=== PATIENT | female | born 1990 | race Caucasian/White ===

== ENCOUNTER 2017-02-12 02:01 | Emergency (ER) | payer MEDICARE, OTHER ==
[~2017-02-12] VITALS: Ht 160 cm; Wt 86.0 kg
[~2017-02-12 02:01] MED LIST: ARIP30TA5 PO; DULO30CA2 PO; PROP40TA7 PO
[2017-02-12 02:44] LABS: ANION GAP 10 mmol/L (8-16); BASOPHILS % (AUTO) 0.4 % (0.0-2.0); CALCIUM, TOTAL 9.1 mg/dL (8.8-10.5); CARBON DIOXIDE 24 mmol/L (22-29); CHLORIDE 105 mmol/L (98-107); CREATININE 0.94 mg/dL (0.60-1.30); EOSINOPHILS % (AUTO) 0.7 % (1.0-6.0); GLOMERULAR FILTR. RATE CALC > 60 mL/min (>60); HEMATOCRIT 39.7 % (36-46); HEMOGLOBIN 12.6 g/dL (12.0-16.0); LYMPHOCYTES # (AUTO) 1.5 K/uL (1.0-4.8); LYMPHOCYTES % (AUTO) 22.2 % (22.0-44.0); MEAN CORPUSCULAR HEMOGLOBIN 25.3 pg (26.0-34.0); MEAN CORPUSCULAR HGB CONC 31.7 G/dL (31.0-37.0); MEAN CORPUSCULAR VOLUME 80 fL (80-100); MONOCYTES # (AUTO) 0.4 K/uL (0.1-1.0); MONOCYTES % (AUTO) 5.7 % (2.0-9.0); NEUTROPHILS # (AUTO) 4.8 K/uL (1.8-7.7); PLATELET COUNT (AUTO) 216 K/uL (150-450); POTASSIUM 3.4 mmol/L (3.5-5.1); RED BLOOD CELL COUNT(AUTO) 4.97 MIL/uL (4.00-5.20); RED CELL DISTRIBUTION WIDTH 13.7 % (11.5-14.5); SODIUM SERUM 139 mmol/L (136-145); UREA NITROGEN, BLOOD 16 mg/dL (7-18); WHITE BLOOD COUNT (AUTO) 6.7 K/uL (4.5-11.0)
[2017-02-12 02:50] LABS: ALANINE AMINOTRANSFERASE 37 U/L (12-78); ALBUMIN 3.6 g/dL (3.4-5.0); ASPARTATE AMINOTRANSFERASE 16 U/L (15-37); BILIRUBIN,TOTAL 0.3 mg/dL (0.1-1.0)
[2017-02-12 04:19] VITALS: BP 118/75
== END 2017-02-12 04:21 | disposition home or self-care (01) ==
LOC: EMS 02:02
DX: F31.9 Bipolar disorder, unspecified (principal); F17.210 Nicotine dependence, cigarettes, uncomplicated; Z88.6 Allergy status to analgesic agent; Z88.8 Allergy status to other drugs, medicaments and biological substances; Z91.040 Latex allergy status
CPT/HCPCS: 36415; 80053; 80307; 85025; 99285; G0480

== ENCOUNTER 2017-06-15 12:13 | Inpatient (IN) | payer MEDICARE, MEDICAID ==
[~2017-06-15] VITALS: Ht 160 cm; Wt 86.9 kg
[~2017-06-15 12:13] MED LIST changes: +ARIP30TA PO; -ARIP30TA5 PO
[2017-06-15] MEDS ORDERED: PROMETHAZINE HCL 25 MG TABLET PO PRN (18:00)
[2017-06-15] MEDS ORDERED: LOPERAMIDE HCL 2 MG CAPSULE PO PRN (18:00)
[2017-06-15] MEDS ORDERED: ACETAMINOPHEN 325 MG TABLET PO PRN ×2 (18:00→21:15)
[2017-06-15] MEDS ORDERED: LORazepam 2 MG TABLET PO PRN (18:00)
[2017-06-15] MEDS ORDERED: HydrOXYzine PAMOATE 50 MG CAPSULE PO PRN (18:00)
[2017-06-15] MEDS ORDERED: MAG HYDROX/AL HYDROX/SIMETH ES 30 ML SUSPENSION UDCUP PO PRN (18:00)
[2017-06-15] MEDS ORDERED: TUBERCULIN, PURIFIED PROTEIN DERIVATIVE 5 TU/0.1 ML SYG ID ONE (18:00)
[2017-06-15] MEDS ORDERED: GuaiFENesin/D-METHORPHAN [SUGAR-FREE] 200-20MG/10 ML SYRUP UDCUP PO PRN (18:00)
[2017-06-15] MEDS ORDERED: ZOLPIDEM TARTRATE 10 MG TABLET PO PRN (18:00)
[2017-06-15] MEDS ORDERED: MAGNESIUM HYDROXIDE SUSPENSION 30 ML UDCUP PO PRN (18:00)
[2017-06-15] MEDS ORDERED: OLANZapine 5 MG RAPDIS TABLET PO PRN (18:00)
[2017-06-15 18:28] VITALS: BP 114/77
[2017-06-15] MEDS: THIAMINE HCL 100 MG TABLET PO SCH (18:42)
[2017-06-15] MEDS: PROPRANOLOL HCL 10 MG TABLET PO SCH (18:42)
[2017-06-15 19:44] VITALS: BP 121/75
[2017-06-15] MEDS ORDERED: OLANZapine 5 MG RAPDIS TABLET PO SCH (21:00)
[2017-06-15] MEDS ORDERED: ARIPiprazole ER SUSPENSION 400 MG PRE-FILLED DUAL CHAMBER SYRINGE IM ONE (21:00)
[2017-06-15] MEDS ORDERED: IBUPROFEN 400 MG TABLET PO PRN (21:15)
[2017-06-16 06:33] VITALS: BP 124/90
[2017-06-16 08:04] VITALS: BP 110/66
[2017-06-16 08:20] LABS: BASOPHILS % (AUTO) 0.4 % (0.0-2.0); EOSINOPHILS % (AUTO) 1.3 % (1.0-6.0); HEMATOCRIT 40.3 % (36-46); HEMOGLOBIN 13.4 g/dL (12.0-16.0); LYMPHOCYTES # (AUTO) 1.8 K/uL (1.0-4.8); LYMPHOCYTES % (AUTO) 25.3 % (22.0-44.0); MEAN CORPUSCULAR HEMOGLOBIN 27.3 pg (26.0-34.0); MEAN CORPUSCULAR HGB CONC 33.3 G/dL (31.0-37.0); MEAN CORPUSCULAR VOLUME 82 fL (80-100); MONOCYTES # (AUTO) 0.4 K/uL (0.1-1.0); MONOCYTES % (AUTO) 5.1 % (2.0-9.0); NEUTROPHILS # (AUTO) 4.9 K/uL (1.8-7.7); NEUTROPHILS % (AUTO) 67.9 % (40.0-70.0); PLATELET COUNT (AUTO) 260 K/uL (150-450); RED BLOOD CELL COUNT(AUTO) 4.92 MIL/uL (4.00-5.20); WHITE BLOOD COUNT (AUTO) 7.2 K/uL (4.5-11.0)
[2017-06-16 08:42] LABS: HEMOGLOBIN A1C 5.7 % (4.5-6.2)
[2017-06-16 08:43] LABS: ALANINE AMINOTRANSFERASE 34 U/L (12-78); ALBUMIN 3.8 g/dL (3.4-5.0); ANION GAP 10 mmol/L (8-16); ASPARTATE AMINOTRANSFERASE 27 U/L (15-37); BILIRUBIN,TOTAL 0.5 mg/dL (0.1-1.0); CARBON DIOXIDE 28 mmol/L (22-29); CHLORIDE 103 mmol/L (98-107); CHOL/HDL RATIO 4.7 (3.9-5.7); CREATININE 0.77 mg/dL (0.60-1.30); GLOMERULAR FILTR. RATE CALC > 60 mL/min (>60); POTASSIUM 3.6 mmol/L (3.5-5.1); SODIUM SERUM 141 mmol/L (136-145); THYROID STIMULATING HORMONE 1.38 uIU/mL (0.36-3.74); TOTAL PROTEIN, SERUM 7.7 g/dL (6.4-8.2); UREA NITROGEN, BLOOD 14 mg/dL (7-18)
[2017-06-16] MEDS: NALTREXONE HCL 50 MG TABLET PO SCH (09:00)
[2017-06-16] MEDS ORDERED: FLUoxetine HCL 20 MG CAPSULE PO SCH (09:00)
[2017-06-16] MEDS: ARIPiprazole 15 MG TABLET PO SCH (09:00)
[2017-06-16] MEDS: PROPRANOLOL HCL 10 MG TABLET PO SCH ×2 (09:00→17:00)
[2017-06-16] MEDS: THIAMINE HCL 100 MG TABLET PO SCH ×2 (09:00→17:00)
[2017-06-16] MEDS: MULTIVITAMINS WITH MINERALS, THERAPEUTIC TABLET PO SCH (09:00)
[2017-06-16] MEDS: FOLIC ACID 1 MG TABLET PO SCH (09:00)
[2017-06-16] MEDS ORDERED: DULoxetine HCL 20 MG CAPSULE PO SCH (09:00)
[2017-06-16 16:08] VITALS: BP 110/62
[2017-06-17 06:59] VITALS: BP 118/72
[2017-06-17] MEDS: MULTIVITAMINS WITH MINERALS, THERAPEUTIC TABLET PO SCH (09:00)
[2017-06-17] MEDS: ARIPiprazole 15 MG TABLET PO SCH (09:00)
[2017-06-17] MEDS: FOLIC ACID 1 MG TABLET PO SCH (09:00)
[2017-06-17] MEDS: THIAMINE HCL 100 MG TABLET PO SCH ×2 (09:00→17:00)
[2017-06-17] MEDS: NALTREXONE HCL 50 MG TABLET PO SCH (09:00)
[2017-06-17 16:07] VITALS: BP 111/65
[2017-06-18 08:10] VITALS: BP 102/65
[2017-06-18] MEDS: FOLIC ACID 1 MG TABLET PO SCH (08:30)
[2017-06-18] MEDS: ARIPiprazole 15 MG TABLET PO SCH (08:30)
[2017-06-18] MEDS: NALTREXONE HCL 50 MG TABLET PO SCH (08:30)
[2017-06-18] MEDS: MULTIVITAMINS WITH MINERALS, THERAPEUTIC TABLET PO SCH (08:31)
[2017-06-18] MEDS: THIAMINE HCL 100 MG TABLET PO SCH ×2 (08:32→17:00)
[2017-06-18 15:59] VITALS: BP 111/62
[2017-06-18 16:02] VITALS: BP 111/62
[2017-06-19 06:32] VITALS: BP 110/68
[2017-06-19] MEDS: NALTREXONE HCL 50 MG TABLET PO SCH (08:01)
[2017-06-19] MEDS: FOLIC ACID 1 MG TABLET PO SCH (08:01)
[2017-06-19] MEDS: ARIPiprazole 15 MG TABLET PO SCH (08:01)
[2017-06-19] MEDS: MULTIVITAMINS WITH MINERALS, THERAPEUTIC TABLET PO SCH (08:01)
[2017-06-19] MEDS: THIAMINE HCL 100 MG TABLET PO SCH ×2 (08:01→16:50)
[2017-06-19 08:20] VITALS: BP 113/68
[2017-06-19 16:04] VITALS: BP 110/64
[2017-06-20 06:10] VITALS: BP 100/62
[2017-06-20 08:04] VITALS: BP 116/71
[2017-06-20] MEDS: NALTREXONE HCL 50 MG TABLET PO SCH (08:25)
[2017-06-20] MEDS: MULTIVITAMINS WITH MINERALS, THERAPEUTIC TABLET PO SCH (08:25)
[2017-06-20] MEDS: THIAMINE HCL 100 MG TABLET PO SCH ×2 (08:25→16:27)
[2017-06-20] MEDS: ARIPiprazole 15 MG TABLET PO SCH (08:25)
[2017-06-20] MEDS: FOLIC ACID 1 MG TABLET PO SCH (08:25)
[2017-06-20 16:05] VITALS: BP 109/68
[2017-06-21 06:12] VITALS: BP 117/62
[2017-06-21 08:19] VITALS: BP 126/71
[2017-06-21] MEDS: THIAMINE HCL 100 MG TABLET PO SCH ×3 (08:45→16:16)
[2017-06-21] MEDS: MULTIVITAMINS WITH MINERALS, THERAPEUTIC TABLET PO SCH ×2 (08:46→09:32)
[2017-06-21] MEDS: NALTREXONE HCL 50 MG TABLET PO SCH ×2 (08:46→09:32)
[2017-06-21] MEDS: ARIPiprazole 15 MG TABLET PO SCH ×2 (08:47→09:32)
[2017-06-21] MEDS: FOLIC ACID 1 MG TABLET PO SCH ×2 (08:47→09:32)
[2017-06-21 16:03] VITALS: BP 131/63
[2017-06-22 03:23] VITALS: BP 127/66
[2017-06-22] MEDS: MULTIVITAMINS WITH MINERALS, THERAPEUTIC TABLET PO SCH (09:03)
[2017-06-22] MEDS: THIAMINE HCL 100 MG TABLET PO SCH ×2 (09:03→16:03)
[2017-06-22] MEDS: NALTREXONE HCL 50 MG TABLET PO SCH (09:03)
[2017-06-22] MEDS: ARIPiprazole 15 MG TABLET PO SCH (09:03)
[2017-06-22] MEDS: FOLIC ACID 1 MG TABLET PO SCH (09:03)
[2017-06-22 16:06] VITALS: BP 126/68
[2017-06-23 08:05] VITALS: BP 102/66
[2017-06-23] MEDS: NALTREXONE HCL 50 MG TABLET PO SCH (08:21)
[2017-06-23] MEDS: THIAMINE HCL 100 MG TABLET PO SCH ×2 (08:21→16:11)
[2017-06-23] MEDS: MULTIVITAMINS WITH MINERALS, THERAPEUTIC TABLET PO SCH (08:21)
[2017-06-23] MEDS: FOLIC ACID 1 MG TABLET PO SCH (08:21)
[2017-06-23] MEDS: ARIPiprazole 10 MG TABLET PO SCH (08:25)
[2017-06-23] MEDS ORDERED: ARIP10TA8 PO (11:42)
[2017-06-23] MEDS ORDERED: NALT50TA PO (11:43)
[2017-06-23 16:06] VITALS: BP 110/75
[2017-06-24 07:11] VITALS: BP 112/72
[2017-06-24 08:01] VITALS: BP 102/66
[2017-06-24] MEDS: NALTREXONE HCL 50 MG TABLET PO SCH (08:09)
[2017-06-24] MEDS: MULTIVITAMINS WITH MINERALS, THERAPEUTIC TABLET PO SCH (08:09)
[2017-06-24] MEDS: ARIPiprazole 10 MG TABLET PO SCH (08:09)
[2017-06-24] MEDS: FOLIC ACID 1 MG TABLET PO SCH (08:09)
[2017-06-24] MEDS: THIAMINE HCL 100 MG TABLET PO SCH (08:09)
[2017-06-24] MEDS ORDERED: NALT50TA6 PO (10:07)
[2017-07-13] MEDS ORDERED: ARIPiprazole ER SUSPENSION 400 MG PRE-FILLED DUAL CHAMBER SYRINGE IM SCH (09:00)
== END 2017-06-24 14:30 | disposition home or self-care (01) | DRG 885 ==
LOC: B3A 18:26
PROVIDERS: ADMIT Psychiatry & Neurology Psychiatry; ATTEND Psychiatry & Neurology Psychiatry
DX: F25.9 Schizoaffective disorder, unspecified (principal); Z91.14 Patient's other noncompliance with medication regimen; I10 Essential (primary) hypertension; E66.9 Obesity, unspecified; F10.10 Alcohol abuse, uncomplicated; F17.200 Nicotine dependence, unspecified, uncomplicated; J44.9 Chronic obstructive pulmonary disease, unspecified; R51 Headache; Z68.33 Body mass index [BMI] 33.0-33.9, adult; Z63.9 Problem related to primary support group, unspecified; Z65.3 Problems related to other legal circumstances; Z88.5 Allergy status to narcotic agent; Z88.6 Allergy status to analgesic agent; Z91.040 Latex allergy status; F19.10 Other psychoactive substance abuse, uncomplicated; Z71.51 Drug abuse counseling and surveillance of drug abuser; Z71.41 Alcohol abuse counseling and surveillance of alcoholic
CPT/HCPCS: 83036; 84439; 84443; 86592; 87081; J0401